=== PATIENT | female | born 1965 | race Caucasian/White ===

== ENCOUNTER → 2018-07-30 | Outpatient (REF) | payer BC ==
[2018-07-30 18:42] LABS: LUTEINIZING HORMONE 51.9 mIU/mL
== END ==
LOC: M LABDRAW1 16:38
PROVIDERS: ATTEND Nurse Practitioner Family
DX: N95.8 Other specified menopausal and perimenopausal disorders (principal)

== ENCOUNTER → 2018-09-04 | Outpatient (REF) | payer BC ==
[2018-09-04 12:36] LABS: LUTEINIZING HORMONE 48.4 mIU/mL
== END ==
LOC: M LABDRAW1 11:42
PROVIDERS: ATTEND Nurse Practitioner Family
DX: N95.8 Other specified menopausal and perimenopausal disorders (principal)

== ENCOUNTER → 2019-12-26 | Outpatient (CLI) | payer BC | LOC: M LABSMTC 10:41 | PROVIDERS: ATTEND Orthopaedic Surgery | DX: Z03.818 Encounter for observation for suspected exposure to other biological agents ruled out (principal) ==

== ENCOUNTER → 2020-01-09 | Outpatient (CLI) | payer BC | LOC: M LABSMTC 09:01 | PROVIDERS: ATTEND Physician Assistant | DX: Z11.59 Encounter for screening for other viral diseases (principal); Z03.89 Encounter for observation for other suspected diseases and conditions ruled out ==

== ENCOUNTER → 2020-01-23 | Outpatient (CLI) | payer BC | LOC: M LABSMTC 08:50 | PROVIDERS: ATTEND Physician Assistant | DX: Z01.818 Encounter for other preprocedural examination (principal); Z11.59 Encounter for screening for other viral diseases ==

== ENCOUNTER → 2020-03-15 | Outpatient (REF) | payer BC | LOC: M WUC 18:05 | PROVIDERS: ATTEND Nurse Practitioner Family | DX: R30.0 Dysuria (principal) ==

== ENCOUNTER → 2022-01-01 | Outpatient (CLI) | payer BC ==
[2022-01-01 16:20] LABS: BASO # 0.1 10^3/uL (0.0-0.2); BASO % 1.2 % (0.0-1.0); EOS % 0.3 % (0.0-3.0); HEMATOCRIT 42.2 % (36.0-47.0); HEMOGLOBIN 13.8 g/dl (12.0-15.5); LYMPH # 1.6 10^3/uL (1.5-5.0); MEAN CORPUSCULAR HEMOGLOBIN 29.7 pg (27.0-33.0); MEAN CORPUSCULAR HGB CONC 32.7 g/dl (32.0-36.5); MEAN CORPUSCULAR VOLUME 90.8 fl (80.0-96.0); MONO # 0.4 10^3/uL (0.0-0.8); MONO % 5.5 % (2.0-8.0); NEUTROPHILS # 5.4 10^3/uL (1.5-8.5); NEUTROPHILS % 71.7 % (36.0-66.0); PLATELET COUNT, AUTOMATED 274 10^3/uL (150-450); RED BLOOD COUNT 4.65 10^6/uL (4.00-5.40); WHITE BLOOD COUNT 7.5 10^3/uL (4.0-10.0)
[2022-01-01 16:46] LABS: BLOOD UREA NITROGEN 20 MG/DL (7-18); GLUCOSE, FASTING 98 MG/DL (70-100)
[2022-01-01 16:47] LABS: ALBUMIN 3.9 GM/DL (3.2-5.2); ALT/SGPT 17 U/L (12-78); BILIRUBIN,TOTAL 0.2 MG/DL (0.2-1.0); CALCIUM LEVEL 9.5 MG/DL (8.5-10.1); CARBON DIOXIDE LEVEL 30 MEQ/L (21-32); CHLORIDE LEVEL 108 MEQ/L (98-107); GLOMERULAR FILTRATION RATE > 60.0 (>51); LIPASE 326 U/L (73-393); POTASSIUM SERUM 4.1 MEQ/L (3.5-5.1); SODIUM LEVEL 143 MEQ/L (136-145); TOTAL PROTEIN 6.9 GM/DL (6.4-8.2)
== END ==
LOC: M PLALAB 12:22
PROVIDERS: ATTEND Student in an Organized Health Care Education/Training Program
DX: R10.10 Upper abdominal pain, unspecified (principal)

== ENCOUNTER 2022-07-29 00:49 | Emergency (ER) | payer BC ==
[~2022-07-29] VITALS: Ht 162.6 cm; Wt 58.2 kg
[2022-07-29] MEDS ORDERED: ONDANSETRON 4MG ORAL DISINTEGRATING TAB PO ONE (01:35)
[2022-07-29] MEDS ORDERED: PERCOCET 5MG/325MG TAB PO ONE (01:35)
[2022-07-29] MEDS ORDERED: HYDR-3713 PO (02:15)
[2022-07-29] MEDS ORDERED: OXYCODONE/APAP 5MG/325MG(HOME DOSE PACK) PO ONE (02:20)
[2022-07-29 02:39] VITALS: BP 112/57
== END 2022-07-29 02:50 | disposition home or self-care (01) ==
LOC: M ED 00:49
DX: S82.842A Displaced bimalleolar fracture of left lower leg, initial encounter for closed fracture (principal); W10.9XXA Fall (on) (from) unspecified stairs and steps, initial encounter; M19.90 Unspecified osteoarthritis, unspecified site

== ENCOUNTER → 2025-03-29 | Outpatient (REF) | payer BC ==
[~2025-03-29] MED LIST: HYDR-3713 PO
== END ==
LOC: M LAB REF 11:57
PROVIDERS: ATTEND Student in an Organized Health Care Education/Training Program
DX: R30.0 Dysuria (principal)